=== PATIENT | male | born 1975 | race Caucasian/White ===

== ENCOUNTER 2017-11-19 11:11 | Emergency (ER) | payer MEDICAID, SELFPAY ==
[2017-11-19 11:12] VITALS: BP 147/82; PULSE 119; RESP 18; TEMP 35.9; BMI 27.9
--- NOTE | 2017-11-19 11:39 | ED.DCSUM_ITS ---
- ER Visit Summary Date of Service: 11/19/17 Chief Complaint: Penile discharge and pain History of Present Illness: The patient is a 41 M no significant past medical history. Patient states I have had sex with a lot of women and has never had anything like this. Remote history of [place]'s patient states he had rough sex several days ago and then started with a penile discharge 3 or 4 days ago. He states it wang to his knee. He denies any fever. Right side he denies any other complaints other than pain. Physical Examination: Ill-appearing male. Vital signs are stable afebrile. Her smile is not asymmetric lungs are clear to auscultation. Heart regular rhythm. Abdomen soft nontender. External exam shows a puslike penile discharge. Otherwise there are no lesions. No testicular swelling or tenderness. No penile tenderness. Neurovascular intact. His midline. The skin unremarkable. Test Results: None Emergency Department Course and Treatment: Patient treated for STD with IM Rocephin and p.o. Zithromax. He requested Motrin for pain. Treatment Plan: Always use condoms. No sex for at least 1 week. Follow up with not improving. Disposition: Discharge Impression: Acute penile discharge secondary to STD This note was generated with [employer] dictation software. It may contain incorrect words, spelling, and punctuation that were not noted in review of the chart prior to signing ED Disposition - Plan for ED Patient: Chief Complaint: Male Pain/Injury Referrals: Tory Dale MD [Primary Care Provider] -
--- NOTE | 2017-11-19 11:39 | ED.DEP ---
ED Disposition - Plan for ED Patient: Disposition: Home or Assisted Living Chief Complaint: Male Pain/Injury Instructions: ED STD Male Treated Referrals: Tory Dale MD [Primary Care Provider] - 1 Week if not improving Additional Instructions: Always use condoms. Warm sexual partners to be checked.
[2017-11-19] MEDS: Azithromycin 250 MG Tablet 1000 MG PO (11:50)
[2017-11-19] MEDS: Ibuprofen 600 MG Tablet PO (11:50)
[2017-11-19] MEDS: Ceftriaxone 500 MG Vial 250 MG IM (12:02)
== END 2017-11-19 12:18 | disposition home or self-care (01) ==
LOC: ED 11:48
PROVIDERS: Emergency Provider Emergency Medicine; Family Provider Family Medicine; PCP Family Medicine
DX: A64 Unspecified sexually transmitted disease (principal); N34.2 Other urethritis; R36.9 Urethral discharge, unspecified; Z72.0 Tobacco use
CPT/HCPCS: 96372; 99283

== ENCOUNTER 2018-04-20 10:21 | Emergency (ER) | payer SELFPAY ==
[2018-04-20 10:23] VITALS: BP 148/102; PULSE 112; RESP 16; TEMP 36.4; O2SAT 98; BMI 29.2
[2018-04-20 10:25] VITALS: BP 148/102; PULSE 112; RESP 16; TEMP 36.4; O2SAT 98
--- NOTE | 2018-04-20 10:37 | ED.VISSUMM ---
- ER Visit Summary Date of Service: 04/20/18 Chief Complaint: Wound to the top of his penis History of Present Illness: The patient is a 42 M days he was urinating publicly and had to zip his pants quickly as someone was approaching. When he did that he got the top of his penis caught in his zipper. This occurred 2 days ago. Now he believes is infected. It is red, swollen and painful. I asked he adamantly denied any type of human bite. He is not diabetic. Physical Examination: Middle-aged male. No acute distress. Vital signs are stable. Afebrile. HEENT exam unremarkable. Neck nontender. Lungs clear to auscultation bilaterally. Heart regular rhythm no murmur. Abdomen soft nontender normal bowel sounds no peritoneal signs. External exam he is a 1 inch healed laceration to the anterior proximal end of his penis. There is redness to the area. It is tender to touch. His scrotum and testicles are unremarkable. The rest of the penile shaft is unremarkable. He is circumcised. He does have mild tenderness in both groins and mild lymphadenopathy. Extremities moves all 4. Neurologically is awake and alert. Test Results: None Emergency Department Course and Treatment: Patient will be treated for an infected wound to the top of his penis. We placed on both Keflex and Bactrim. Given a dose in the ER. Limited [place] for pain. Otherwise Motrin and Tylenol. Treatment Plan: Keflex and Bactrim for 10 days each. Follow-up with his PCP. Disposition: Discharge Impression: Acute infected wound on the penile shaft with soft tissue infection This note was generated with [employer] dictation software. It may contain incorrect words, spelling, and punctuation that were not noted in review of the chart prior to signing ED Disposition - Plan for ED Patient: Chief Complaint: Wound Referrals: Tory Dale MD [Primary Care Provider] -
--- NOTE | 2018-04-20 10:40 | ED.DCSUM_ITS ---
- ER Visit Summary Date of Service: 04/20/18 Chief Complaint: Wound to the top of his penis History of Present Illness: The patient is a 42 M days he was urinating publicly and had to zip his pants quickly as someone was approaching. When he did that he got the top of his penis caught in his zipper. This occurred 2 days ago. Now he believes is infected. It is red, swollen and painful. I asked he adamantly denied any type of human bite. He is not diabetic. Physical Examination: Middle-aged male. No acute distress. Vital signs are stable. Afebrile. HEENT exam unremarkable. Neck nontender. Lungs clear to auscultation bilaterally. Heart regular rhythm no murmur. Abdomen soft nontender normal bowel sounds no peritoneal signs. External exam he is a 1 inch healed laceration to the anterior proximal end of his penis. There is redness to the area. It is tender to touch. His scrotum and testicles are unremarkable. The rest of the penile shaft is unremarkable. He is circumcised. He does have mild tenderness in both groins and mild lymphadenopathy. Extremit ies moves all 4. Neurologically is awake and alert. Test Results: None Emergency Department Course and Treatment: Patient will be treated for an infected wound to the top of his penis. We placed on both Keflex and Bactrim. Given a dose in the ER. Limited [place] for pain. Otherwise Motrin and Tylenol. Treatment Plan: Keflex and Bactrim for 10 days each. Follow-up with his PCP. Disposition: Discharge Impression: Acute infected wound on the penile shaft with soft tissue infection This note was generated with [employer] dictation software. It may contain incorrect words, spelling, and punctuation that were not noted in review of the chart prior to signing ED Disposition - Plan for ED Patient: Chief Complaint: Wound Referrals: Tory Dale MD [Primary Care Provider] -
--- NOTE | 2018-04-20 10:40 | ED.DEP ---
ED Disposition - Plan for ED Patient: Disposition: Home or Assisted Living Chief Complaint: Wound Instructions: Recognizing and Treating Wound Infection, ED Infec Skin Cellulitis Prescriptions: Hydrocodone Bitart/Apap 5-325 [[place] 5MG-325MG] 1 tab PO Q4H PRN PRN 2 Days #10 tab PRN Reason: Pain Cephalexin [Keflex] 500 mg PO Q6 #40 cap Smz/Tmp Ds [Bactrim Ds] 1 tab PO BID #20 tab Referrals: Tory Dale MD [STAFF PHYSICIAN] - 3-5 Days if not improving Additional Instructions: Follow-up with your doctor if not improving. [place] for pain primarily Motrin. Take both the Keflex 1 pill 4 times a day and the Bactrim 1 pill twice a day for 10 days to take care of this infection.
--- NOTE | 2018-04-20 10:46 | DCINST.ED_ITS ---
ED Disposition - Plan for ED Patient: Disposition: Home or Assisted Living Chief Complaint: Wound Instructions: Recognizing and Treating Wound Infection, ED Infec Skin Cellulitis Prescriptions: Hydrocodone Bitart/Apap 5-325 [[place] 5MG-325MG] 1 tab PO Q4H PRN PRN 2 Days #10 tab PRN Reason: Pain Cephalexin [Keflex] 500 mg PO Q6 #40 cap Smz/Tmp Ds [Bactrim Ds] 1 tab PO BID #20 tab Referrals: Tory Dale MD [STAFF PHYSICIAN] - 3-5 Days if not improving Additional Instructions: Follow-up with your doctor if not improving. [place] for pain primarily Motrin. Take both the Keflex 1 pill 4 times a day and the Bactrim 1 pill twice a day for 10 days to take care of this infection.
[2018-04-20] MEDS: Smz/Tmp Ds Tablet 1 TABLET PO (10:54)
[2018-04-20] MEDS: HYDROcodone Bitartrate/Apap 5/325 Tablet PO (10:54)
[2018-04-20] MEDS: Cephalexin 250 MG Capsule 500 MG PO (10:55)
--- OUTSIDE RECORDS SUMMARY | 2018-06-22 08:19 | XMS RPT_ITS ---
:1975 Author Organization [facility] Care Team Providers Name Role Phone Robi Yusuf Attending Unavailable Primay Care Physicia, No Primary Care Unavailable Suyapa, Tory Primary Care Unavailable Robi Yusuf Attending Unavailable PROBLEMS PROBLEMS DATE TYPE CONDITION / CODE ATTENDING STATUS SOURCE 04/20/2018 Unknown T14.8XXA - Other Robi Yusuf Active [facility] injury of [facility] unspecified body Hospital region, initial Repository encounter / T14.8XXA(ICD-10) PROCEDURES PROCEDURES No Procedure Records FoundRESULTS RESULTS EMERGENCY DEPARTMENT Observed: 04/20/2018 Status: F Source: [place] SUMMARY 3:27 PM [facility] REPOSITORY [facility] Medical Records Department [address] [place] [address] Emergency Department Summary 04/20/18 1037 MR#: [id number] Acct: [id number] Name: ALEX BOUCHER Rep #: [id number] : 1975 42 From: Robi Yusuf MD PCP: Care Physician, No Primary Status: DEP ER - ER Visit Summary Date of Service: 04/20/18 Chief Complaint: Wound to the top of his penis History of Present Illness: The patient is a 42 M days he was urinating publicly and had to zip his pants quickly as someone was approaching. When he did that he got the top of his penis caught in his zipper. This occurred 2 days ago. Now he believes is infected. It is red, swollen and painful. I asked he adamantly denied any type of human bite. He is not diabetic. Physical Examination: Middle-aged male. No acute distress. Vital signs are stable. Afebrile. HEENT exam unremarkable. Neck nontender. Lungs clear to auscultation bilaterally. Heart regular rhythm no murmur. Abdomen soft nontender normal bowel sounds no peritoneal signs. External exam he is a 1 inch healed laceration to the anterior proximal end of his penis. There is redness to the area. It is tender to touch. His scrotum and testicles are unremarkable. The rest of the penile shaft is unremarkable. He is circumcised. He does have mild tenderness in both groins and mild lymphadenopathy. Extremities moves all 4. Neurologically is awake and alert. Test Results: None Emergency Department Course and Treatment: Patient will be treated for an infected wound to the top of his penis. We placed on both Keflex and Bactrim. Given a dose in the ER. Limited [place] for pain. Otherwise Motrin and Tylenol. Treatment Plan: Keflex and Bactrim for 10 days each. Follow- up with his PCP. Disposition: Discharge Impression: Acute infected wound on the penile shaft with soft tissue infection This note was generated with [employer] dictation software. It may contain incorrect words, spelling, and punctuation that were not noted in review of the chart prior to signing ED Disposition - Plan for ED Patient: Chief Complaint: Wound Referrals: Tory Dale MD [Primary Care Provider] - What to do if you have Problems For any increased pain, shortness of breath, bleeding, nausea or vomiting, chest pain, or any unexpected problems, contact your Primary Care Provider. Call [facility] ([phone]) or report to the closest Emergency Room. Call 911 if necessary. 04/20/18 1527 <Electronically signed by Robi Yusuf MD> Date Robi Yusuf MD Cosigner Signature (If Indicated): Date CC: No Primary Care Physician DISCHARGE INSTRUCTION Observed: 04/20/2018 Status: F Source: [place] 3:27 PM [facility] REPOS[facility] Medical Records Department [address] [place] [address] Discharge Instruction 04/20/18 1040 MR#: [id number] Acct: [id number] Name: ALEX BOUCHER Rep #: [id number] : 1975 42 From: Robi Yusuf MD PCP: Care Physician, No Primary Status: DEP ER ED Disposition - Plan for ED Patient: Disposition: Home or Assisted Living Chief Complaint: Wound Instructions: Recognizing and Treating Wound Infection, ED Infec Skin Cellulitis Prescriptions: Hydrocodone Bitart/Apap 5-325 [[place] 5MG-325MG] 1 tab PO Q4H PRN PRN 2 Days #10 tab PRN Reason: Pain Cephalexin [Keflex] 500 mg PO Q6 #40 cap Smz/Tmp Ds [Bactrim Ds] 1 tab PO BID #20 tab Referrals: Tory Dale MD [STAFF PHYSICIAN] - 3-5 Days if not improving Additional Instructions: Follow-up with your doctor if not improving. [place] for pain primarily Motrin. Take both the Keflex 1 pill 4 times a day and the Bactrim 1 pill twice a day for 10 days to take care of this infection. What to do if you have Problems For any increased pain, shortness of breath, bleeding, nausea or vomiting, chest pain, or any unexpected problems, contact your Primary Care Provider. Call [facility] ([phone]) or report to the closest Emergency Room. Call 911 if necessary. 04/20/18 1527 <Electronically signed by Robi Yusuf MD> Date Robi Yusuf MD Cosigner Signature (If Indicated): Date CC: No Primary Care Physician EMERGENCY DEPARTMENT Observed: 11/19/2017 Status: F Source: [place] SUMMARY 3:33 PM [facility] RE[facility] Medical Records Department [address] [place] [address] Emergency Department Summary 11/19/17 1137 MR#: [id number] Acct: [id number] Name: ALEX BOUCHER Rep #: [id number] : 1975 41 From: Robi Yusuf MD PCP: Tory Dale MD Status: DEP ER - ER Visit Summary Date of Service: 11/19/17 Chief Complaint: Penile discharge and pain History of Present Illness: The patient is a 41 M no significant past medical history. Patient states I have had sex with a lot of women and has never had anything like this. Remote history of [place]'s patient states he had rough sex several days ago and then started with a penile discharge 3 or 4 days ago. He states it wang to his knee. He denies any fever. Right side he denies any other complaints other than pain. Physical Examination: Ill-appearing male. Vital signs are stable afebrile. Her smile is not asymmetric lungs are clear to auscultation. Heart regular rhythm. Abdomen soft nontender. External exam shows a puslike penile discharge. Otherwise there are no lesions. No testicular swelling or tenderness. No penile tenderness. Neurovascular intact. His midline. The skin unremarkable. Test Results: None Emergency Department Course and Treatment: Patient treated for STD with IM Rocephin and p.o. Zithromax. He requested Motrin for pain. Treatment Plan: Always use condoms. No sex for at least 1 week. Follow up with not improving. Disposition: Discharge Impression: Acute penile discharge secondary to STD This note was generated with [employer] dictation software. It may contain incorrect words, spelling, and punctuation that were not noted in review of the chart prior to signing ED Disposition - Plan for ED Patient: Chief Complaint: Male Pain/Injury Referrals: Tory Dale MD [Primary Care Provider] - What to do if you have Problems For any increased pain, shortness of breath, bleeding, nausea or vomiting, chest pain, or any unexpected problems, contact your Primary Care Provider. Call [facility] ([phone]) or report to the closest Emergency Room. Call 911 if necessary. 11/19/17 6022 <Electronically signed by Robi Yusuf MD> Date Robi Yusuf MD Cosigner Signature (If Indicated): Date CC: Tory Dale MD DISCHARGE INSTRUCTION Observed: 11/19/2017 Status: F Source: [place] 3:33 PM [facility] REPOSITORY [facility] Medical Records Department [address] [place] [address] Discharge Instruction 11/19/17 1139 MR#: [id number] Acct: [id number] Name: ALEX BOUCHER Rep #: [id number] : 1975 41 From: Robi Yusuf MD PCP: Tory Dale MD Status: DEP ER ED Disposition - Plan for ED Patient: Disposition: Home or Assisted Living Chief Complaint: Male Pain/Injury Instructions: ED STD Male Treated Referrals: Tory Dale MD [Primary Care Provider] - 1 Week if not improving Additional Instructions: Always use condoms. Warm sexual partners to be checked. What to do if you have Problems For any increased pain, shortness of breath, bleeding, nausea or vomiting, chest pain, or any unexpected problems, contact your Primary Care Provider. Call [facility] ([phone]) or report to the closest Emergency Room. Call 911 if necessary. 11/19/17 1533 <Electronically signed by Robi Yusuf MD> Date Robi Yusuf MD Cosigner Signature (If Indicated): Date CC: Tory Dale MD ALLERGIES ALLERGIES DATE TYPE / CODE NAME / CODE REACTION SEVERITY SOURCE 11/19/2017 Drug No Known Unknown [facility] Allergy/4160 Allergies/F00 [facility] 70973(SNOMED [id number](RXNOR Repository CT) M) ENCOUNTERS ENCOUNTERS ADMIT/DISCHARGE ACCOUNT ADMITTING ENCOUNTER LOCATION SOURCE NUMBER CLASS 04/20/2018/ [id number] Emergency [facility] ing:ED Repository 11/19/2017[id number] Rep[facility] PAYERS PAYERS ENCOUNTER GUARANTOR PAYER SUBSCRIBER SOURCE 04/20/2018 ALEX DEL ANGEL S Primary NOT GIVENUNK [facility] [place] Insurance:SELF PAY [facility] [id number]: (330) Number: Effective Repository [phone] () Date:2018-04-20 11/19/2017 ALEX DEL ANGEL S Primary ALEX MURPHYB: [facility] [place] [id number] [id number]: (330) Number: Repository [phone] () [id number] Date:[id number] [address] [place] [id number]: 11/19/2017 Secondary NOT GIVENUNK [facility] Insurance:SELF PAY [facility] Number: Effective Repository Date:2017-11-19
== END 2018-04-20 11:00 | disposition home or self-care (01) ==
PROVIDERS: Emergency Provider Emergency Medicine
DX: S31.21XA Laceration without foreign body of penis, initial encounter (principal); L08.9 Local infection of the skin and subcutaneous tissue, unspecified; Z72.0 Tobacco use; W23.0XXA Caught, crushed, jammed, or pinched between moving objects, initial encounter; Y93.89 Activity, other specified; Y92.89 Other specified places as the place of occurrence of the external cause; Y99.8 Other external cause status
CPT/HCPCS: 99283